=== PATIENT | female | born 1990 | race Caucasian/White ===

== ENCOUNTER 2023-06-04 02:18 | Emergency (ER) | payer OTHER, SELFPAY ==
[2023-06-04 02:20] VITALS: BP 156/91
[2023-06-04 02:40] VITALS: BP 111/78
[2023-06-04 03:16] LABS: % Basophils 0.6 % (0-2); % Eosinophils 1.7 % (0-6); % Immature Granulocytes 0.5 % (0-0.5); % Lymphocytes 38.6 % (20.5-51.1); % Monocytes 7.5 % (1.7-9.3); % Neutrophils 51.1 % (42.2-75.2); Absolute Basophils 0.1 10^3/uL (0-0.2); Absolute Eosinophils 0.2 10^3/uL (0-0.7); Absolute Lymphocytes 3.4 10^3/uL (1.2-3.4); Absolute Monocytes 0.7 10^3/uL (0.1-0.6); Absolute Neutrophils 4.5 10^3/uL (1.4-6.5); Hematocrit 35.6 % (37.0-47.0); Hemoglobin 12.9 g/dL (12.0-16.0); Mean Corp Hgb Conc. 36.2 g/dL (33.0-37.0); Mean Corpuscular Hgb 30.9 pg (27.0-31.0); Mean Corpuscular Volume 85.2 fL (81.0-99.0); Mean Platelet Volume 8.6 fL (7.4-10.4); Nucleated Red Blood Cells % 0 %; Platelet Count 349 10^3/uL (130-400); Red Blood Cell Count 4.18 10^6/uL (4.20-5.40); Red Cell Dist. Width 13.4 % (11.5-14.5); White Blood Cell Count 8.8 10^3/uL (4.8-10.8)
--- NOTE | 2023-06-04 03:27 | ED.GENMED ---
History of Present Illness
General
Chief Complaint: Heart Rate Problem
Source: patient
Exam Limitations: none
Time Seen by Provider: 06/04/23 03:17
Travel History
Have you had any contact with someone who has COVID-19?: No
Do you have any symptoms of coronavirus? Fever > 100 degrees, chills, cough, shortness of breath, sore throat, loss of taste or smell, muscle aches, or headache?: No
History of Present Illness
History of Present Illness:
See MDM
Past History
Past History
ED Past Medical History: Arrthythmia
ED Past Surgical History: None
Social History
Tobacco: Non-smoker
Alcohol: None
Phy Exam
Physical Exam
Physical Exam:
See MDM
Course
Orders/Labs/Results
Orders:
Orders
06/04/23 02:25
Electrocardiogram (*1) Urgent
Reason for Study: Atrial Fibrillation
06/04/23 02:26
EKG- Treatment ONCE
Test Result ONCE
06/04/23 03:08
CMP [Comprehensive Metabolic Panel] Urgent
Complete Blood Count/With Diff Urgent
HCG, Serum Qualitative Screen Urgent
06/04/23 03:09
TSH Reflex To Free T4 Urgent
06/04/23 03:11
Troponin I Urgent
Abnormal Lab Results
06/04/23
03:08
RBC 4.18 L 10^6/uL
(4.20-5.40)
Hct 35.6 L %
(37.0-47.0)
Absolute Monos (auto) 0.7 H 10^3/uL
(0.1-0.6)
Creatinine 0.5 L mg/dL
(0.6-1.0)
Glucose 128 H mg/dl
(70-99)
ALT 39 H U/L
(0-35)
06/04/23 03:08
06/04/23 03:08
Vital Signs
Initial and Last Documented VS:
Initial Vital Signs
Temp Pulse Resp BP Pulse Ox
99.0 F 81 20 156/91 100
06/04/23 02:20 06/04/23 02:20 06/04/23 02:20 06/04/23 02:20 06/04/23 02:20
Last Documented Vital Signs
Temp Pulse Resp BP Pulse Ox
99.0 F 71 18 111/78 98
06/04/23 02:20 06/04/23 03:15 06/04/23 03:15 06/04/23 02:40 06/04/23 03:15
MDM/Problems Addressed
Differential Diagnosis Includes:
HPI and MDM Narrative:
33-year-old female presenting with A-fib episode. She was recently diagnosed a few months ago. Patient was in bed and she was about to place her CPAP machine on. She rolled over bed and felt rapid heartbeat. Her Apple Watch confirmed A-fib.
Patient is compliant with propranolol. She is not on blood thinners. She is currently being followed by cardiology. On arrival, all symptoms resolved
Physical exam
General: Well appearing and non-toxic
HEENT: protecting airway
Neck: appears supple
CV: No evidence of cyanosis. Regular rate and rhythm
Resp: No accessory muscle use. Lungs clear
Abd: Non-distended
Extremities: No deformities. No leg edema
Neuro: alert
Psych: Normal affect
Skin: Intact
Problems Addressed including Acute and Chronic Conditions affecting care:
1. A-fib
Acuity: acute
Prognosis: stable
Details: Currently resolved. Patient in sinus rhythm. Will obtain basic blood work
Updates
Labs without clinical significance. Patient remains well-appearing nontoxic. Discussed continued follow-up with cardiology
Differential Diagnosis (but not limited to): A-fib, palpitations, SVT
Testing considered: Chest x-ray but symptoms resolved
Drug therapy (if applicable): OTC meds, please see d/c instruction regarding Rx drugs
Amount and/or Complexity of Data Reviewed
Clinical info obtained from: Patient
External data reviewed: N/A
Labs I independently reviewed (but not limited to): Troponin and thyroid normal
Radiology: N/A
Pulse Ox: not hypoxic
EKG independently reviewed: Sinus rhythm, normal axis, no STEMI
Sound Effects Manager: Sinus rhythm
Critical Care: N/A
Risk of Complication:
Social Determinants of health: Good social support
Discussed with other providers: N/A
Escalation of Care includes Admit/Obs: After being observed in the Emergency Department, pt stable for discharge.
Occasional wrong word or 'sound a like' substitutions may have occurred due to the inherent limitations of voice recognition software. Read the chart carefully and recognize, using context, where substitutions have occurred.
*Critical Care Note
Total Time (30-74mins, 75-104mins- exclusive of procedures): Not Applicable
ED Attending Note
-
Portions of this chart may have been created with voice recognition software.� Occasional wrong word or��sound alike� substitutions may have occurred due to the inherent limitations of voice recognition software.
Discharge Plan
Departure
Patient Disposition: Home (Routine Discharge)
Date of Disposition: 06/04/23
Time of Disposition: 04:23
Patient with high blood pressure during this ER visit?: No
Discharge Problem:
A-fib
Instructions: Atrial Fibrillation (DC)
Prescriptions:
No Action
propranolol 40 mg Tablet
40 mg PO BID
Referrals:
Charlene Abreu DO [Family Provider] -
Activity Restrictions/Additional Instructions:
Please return for any worsening symptoms.
You may return at any time if you have further concerns.
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
Thank you for choosing [facility].
Interventions
Interventions:
*Risk Screen - Suicide Last Done: 06/04/23 02:20
*General Assessment Last Done: 06/04/23 02:20
*Neglect/Abuse Screening Last Done: 06/04/23 02:20
ED- Fall Risk Assessment Last Done: 06/04/23 02:20
*ED COVID-19 Vaccine History Last Done: 06/04/23 02:20
ED- Cardiac Assessment Last Done: 06/04/23 03:17
ED- Pulmonary Assessment Last Done: 06/04/23 03:17
[2023-06-04 03:33] LABS: HCG, Serum Qualitative Screen Negative
[2023-06-04 03:41] LABS: ALT (SGPT) 39 U/L (0-35); AST (SGOT) 28 U/L (14-36); Albumin 4.5 g/dl (3.5-5.0); Alkaline Phosphatase 81 U/L (38-126); Blood Urea Nitrogen 9 mg/dl (7-17); Calcium 9.4 mg/dl (8.4-10.2); Carbon Dioxide 25 mmol/L (22-30); Chloride 106 mmol/L (98-107); Glucose 128 mg/dl (70-99); Potassium 3.8 mmol/L (3.5-5.1); Sodium 139 mmol/L (135-145); Total Bilirubin 0.5 mg/dl (0.2-1.3); Total Protein 7.7 g/dl (6.3-8.2); eGFR > 60.00
[2023-06-04 03:43] LABS: Troponin I < 0.012 ng/ml
[2023-06-04 04:04] LABS: TSH Reflex To Free T4 3.32 uIU/ml (0.47-4.68)
[2023-06-04 04:06] VITALS: BP 106/83
== END 2023-06-04 04:35 | disposition home or self-care (01) ==
LOC: EMR 02:18
PROVIDERS: EMERGENCY PHYSICIAN Student in an Organized Health Care Education/Training Program; FAMILY PHYSICIAN Family Medicine
DX: I48.91 Unspecified atrial fibrillation (principal)
CPT/HCPCS: 99283; 80053; 84443; 84484; 84703; 85025; 93005

== ENCOUNTER 2023-07-01 05:52 | Day surgery (SDC) | payer OTHER, SELFPAY ==
[2023-06-22 08:08] VITALS: BMI 45.5
[2023-06-22 08:39] LABS: % Basophils 0.7 % (0-2); % Eosinophils 1.4 % (0-6); % Immature Granulocytes 0.6 % (0-0.5); % Lymphocytes 37.3 % (20.5-51.1); % Monocytes 7.2 % (1.7-9.3); % Neutrophils 52.8 % (42.2-75.2); Absolute Basophils 0.1 10^3/uL (0-0.2); Absolute Eosinophils 0.1 10^3/uL (0-0.7); Absolute Immature Granulocytes 0.1 10^3/uL (0-0.05); Absolute Lymphocytes 3.3 10^3/uL (1.2-3.4); Absolute Monocytes 0.6 10^3/uL (0.1-0.6); Absolute Neutrophils 4.6 10^3/uL (1.4-6.5); Hematocrit 37.8 % (37.0-47.0); Hemoglobin 13.2 g/dL (12.0-16.0); Mean Corp Hgb Conc. 34.9 g/dL (33.0-37.0); Mean Corpuscular Hgb 30.3 pg (27.0-31.0); Mean Corpuscular Volume 86.7 fL (81.0-99.0); Mean Platelet Volume 8.9 fL (7.4-10.4); Nucleated Red Blood Cells % 0 %; Platelet Count 382 10^3/uL (130-400); Red Blood Cell Count 4.36 10^6/uL (4.20-5.40); Red Cell Dist. Width 13.2 % (11.5-14.5); White Blood Cell Count 8.8 10^3/uL (4.8-10.8)
[2023-06-22 09:06] LABS: ALT (SGPT) 32 U/L (0-35); AST (SGOT) 21 U/L (14-36); Albumin 4.4 g/dl (3.5-5.0); Alkaline Phosphatase 74 U/L (38-126); Blood Urea Nitrogen 10 mg/dl (7-17); Calcium 9.5 mg/dl (8.4-10.2); Carbon Dioxide 25 mmol/L (22-30); Chloride 103 mmol/L (98-107); Estimated Creatinine Clearance > 125 ml/min; Glucose 102 mg/dl (70-99); Potassium 4.3 mmol/L (3.5-5.1); Sodium 137 mmol/L (135-145); Total Bilirubin 0.5 mg/dl (0.2-1.3); Total Protein 7.5 g/dl (6.3-8.2); eGFR > 60.00
[2023-07-01] VITALS (13 sets, daily range): BP systolic 91–118; BP diastolic 53–86; BMI 45.0
[2023-07-01 08:08] LABS: HCG, Urine Qualitative Screen Negative
[2023-07-01 09:37] LABS: ACT-LR - POC 197 Seconds (116-155)
[2023-07-01 09:44] LABS: ACT-LR - POC 313 Seconds (116-155)
[2023-07-01 09:45] LABS: ACT-LR - POC 348 Seconds (116-155)
[2023-07-01 10:06] LABS: ACT-LR - POC 265 Seconds (116-155)
[2023-07-01 10:28] LABS: ACT-LR - POC 279 Seconds (116-155)
[2023-07-01 10:32] LABS: ACT-LR - POC 232 Seconds (116-155)
--- NOTE | 2023-07-01 11:12 | ITS.CL.ABL ---
Propellant Charge Loader - Ablation
Ablation
Procedure Report:
AFIB ablation:
Ms. Atkins is a very pleasant 33 yr old woman with medical history significant for symptomatic paroxysmal atrial fibrillation, failed Flecainide / Propranolol and is here in the EP lab for atrial fibrillation ablation
Date of Procedure:
07/01/23
Indications:
Symptomatic atrial fibrillation
Pre-Operative Diagnosis:
Paroxysmal Atrial fibrillation
Post-Operative Diagnosis:
Paroxysmal Atrial fibrillation
Procedure Performed:
Atrial fibrillation ablation with wide area circumferential ablation (WACA) approach for pulmonary vein isolation
Performing Physician:
Geoff Berman MD
Assistants:
EP staff
Anesthesia:
See anesthesia records
Detailed Description of the Procedure:
Written informed consent was obtained from the patient after a full explanation of the risks and benefits of the procedure including the risks of sedation and anesthesia.
The patient was brought to the electrophysiology laboratory in stable condition in fasting state. Continuous electrocardiographic and hemodynamic monitoring was initiated.
The initial rhythm was sinus.
The procedure site was meticulously prepared with surgical scrub and allowed to dry with no pooling. Sterile draping was applied to cover the procedure site. The image intensifier was draped with sterile bag and positioned over the patient. After
infusion of local anesthetic, vascular access was obtained under ultrasound guidance and sheaths were placed over guide wire as detailed below.
Sheath and Catheter Placement:
In the right femoral vein, an 8-[place] sheath was placed for use during the ablation procedure. A second 9-Fr sheath was placed for use during intracardiac echo procedure.
The sheaths were upgraded as needed during the case. Intracardiac catheters were positioned using direct fluoroscopic guidance.� ICE catheter was placed in RA. The following catheters / sheaths were placed
Sheaths:
��������������� Agilis sheath in right femoral vein upgraded from 8Fr in right femoral vein
��������������� 9Fr in right femoral vein
��������������� 7fr in right femoral vein
Catheters:
������������� Biosense Arredondo Thermocool STSF bidirectional (D/F) - at locations of HRA, RV, LA and LV.
������������� Pentaray catheter � at locations of RA and LA
������������� ICE catheter - at locations of RA, SVC, and RV.
������������� Decapolar Bard catheter � at locations of RA and CS
Intracardiac ECHO:
An 8-[place] AcuNav intracardiac ECHO (ICE) probe was advanced through the 9-[place] sheath in the femoral vein into the right atrium under fluoroscopic and ICE ultrasound image guidance and a baseline ECHO study was performed. The left atrial size
was normal. There was trace tricuspid regurgitation. The aortic valve was normal. There was normal left ventricular size and function. There was no pericardial effusion. The ADRIENNE has normal velocities noted on Doppler. All the four veins were
identified and good flow noted.
During the procedure, ICE was used for monitoring of complications, guidance of trans-septal puncture, monitor the catheter position and tracking ablation lesions. No change in the pericardial space noted throughout the procedure.
Electrophysiology study:
First the RA was mapped and HIS cloud identified. The penta ray was placed in the RA, The CS was in the CS and the ablatin catheter was placed in the RV and a full EP study was done.
AH was 54 msec
HV was 42 msec.
Sinus Node Function:
Burst pacing was performed from the right atrium at varying cycle lengths to measure the sinus node recovery time (SNRT) and corrected sinus node recovery time (cSNRT). The sinus node functions are within acceptable normal range.
Atrioventricular Mala Function:
Atrial stimulation with incremental pacing intervals was performed from the high right atrium (HRA) and right ventricular apex (RVa) and antegrade and retrograde atrioventricular (AV) block cycle lengths were determined. The antegrade AV Wenckebach
was noted at 330 msec.
Programmed atrial stimulation was performed with drive train of 600 msec followed by a single atrial extra-stimulus and the AV mala and the atrial ERPs were determined. The AV mala ERP was 600/240msec and the atrial ERP was <240msec.
There was normal decremental conduction noted through the AV node. The programmed stimuli showed no evidence of dual pathways or echo beats.
Ventricular stimulation showed concentric, midline and decremental retrograde conduction through the AV node and retrograde AV mala ERP was 800/580 msec. The [address] caused retrograde Wenckebach. �
The AV mala functions are deemed within normal range and no sign of dual pathway noted.
Ventricular Function:
The ventricular electrical functions are within acceptable range.
Para-Hisian pacing:
The proximal CS was noted in the RA and the conduction from the RVa showed possible VA pathway and the Para-Hisian pacing was attempted. The high voltage captured the His with narrow QRS and VA time was 92 msec. The low voltage captured the RV with
wide QRS and the VA time was 186 msec. This is a mala response and accessory pathway was ruled out.�
Arrhythmia Induction:
Programmed stimulation and burst pacing done that did not induce any sustained arrhythmia.
No sustained arrhythmia was inducible.
Then the attention was given to AF ablation.
Trans-septal Puncture:
Heparin was initiated and infused to maintain appropriate ACT.
A J-tipped guidewire was advanced through the 8-[place] sheath in the right femoral vein into the superior vena cava under fluoroscopic and ICE guidance. The 8-[place] sheath was exchanged for an Agilis sheath which was advanced into the superior vena
cava. A BRK needle was advanced until the tip was slightly behind the tip of the dilator inside the Agilis. The apparatus was withdrawn until it was in contact with the fossa ovalis. The position was adjusted based on fluoroscopy and ultrasound
images from ICE. Under fluoroscopic, hemodynamic and ICE ultrasound guidance, left atrium was cannulated by advancing the needle. Once atrial septum was cannulated, the needle was pulled back and a BMW guide wire was advanced through the needle into
the left atrium. The guide wire was advanced into the left superior pulmonary vein. Both the sheath and the dilator was advanced into the left atrium. The dilator with the needle was withdrawn. Blood was aspirated from the Agilis sheath and arterial
blood confirmed. The sheath was flushed. Saline injection noted into the left atrium on ICE. The pressure waveform was checked ad LA pressure measured. The penta-ray catheter was advanced in the Agilis sheath into the left pulmonary vein.
The 3-D mapping was done and then the penta-ray was switched to ablation catheter and back to penta-ray as needed.
3D Electroanatomic Mapping
Using the Pentaray catheter advanced through Agilis sheath into the left atrium, an electroanatomic map (EAM) of the left atrium was created using [employer] Carto mapping system. The map was used for localization of catheter position and
tacking of ablation lesions. The EAM of the left atrium showed 4 pulmonary veins with all four electrically connected to the body the LA. It showed no significant scar present. The LA was normal in size.
The four pulmonary veins were very active and significant ectopy was noted.
Following the EAM, preparations were made for ablation.
Phrenic nerve stimulation attempt:
The right sided pulmonary veins were identified and the anterior antrum and the deep anterior locations of the PVs were check with high output stimulation that showed no phrenic nerve capture in any of the potential ablation areas.
No phrenic nerve capture was noted and the safe areas were marked and a design line was created through the areas of tested antral myocardium for ablation lesions.
Ablation:
Pulmonary vein Isolation:
Radiofrequency ablation was performed using an open irrigation, force-sensing 3.5mm radiofrequency ablation catheter (ThermocoPVPower STSF) by completing the circumferential lesions around the left and right pulmonary veins achieving pulmonary vein
isolation.
All the ablation lesions were guided by the [employer] SURPOINT module with the posterior lesions were limited to 45 herring for SURPOINT lesion index goal of 400 and anterior wall lesions were limited to SURPOINT index goal of 450.
The esophagus was noted to be on the right side of the LA near the PV antra based on the locations of the esophageal temperature probe. Ablation was stopped for any temperature increase of 0.1 degree C. Max esophageal temperature was 37.4C.
Confirmation of the PVI and bidirectional block:
Following achievement of entrance block at the pulmonary veins, pacing from the pentaray catheter in ADRIENNE and the pentaray in each of the four veins at 10 milliamps for 2 milliseconds showed entrance and exit block. All PVI were rechecked at the end
of the case and remained isolated with dissociated and local capture with pacing. Entrance and exit block were demonstrated in all veins.
The LA was mapped with Carto EAM in sinus rhythm confirming the line of block at the ablation lesions lines.
EP study:
Sinus Node Function: The sinus node functions are within acceptable normal range.
The AV mala functions are deemed within normal range.
Arrhythmia Induction:
No sustained arrhythmia was induced at the end of the study.�
Procedure End
ICE study was done again that showed no epicardial accumulation. No complications noted.
Following the completion of the EP study, catheters were removed. Protamine 40 mg was given at the end of the procedure and ACT was checked repeatedly. The sheaths were removed and hemostasis achieved with VASCADE and manual compression after
acceptable ACT is achieved.
Left atrial Pressure:
Pre-Procedure: Mean LA pressure was 18mmHg
Post-Procedure: Mean LA pressure was 18mmHg
Post-Procedure: Mean RA pressure was 15mmHg
Estimated Blood loss:
<10 cc
Specimens Removed:
None.
Implants / Devices:
None
Urine output:
None
Packs / Drains/ Tubes:
None
Instrument / Sponge Count Correct:
Yes
Complications of the Procedure:
None
Condition of Patient at Time of Transfer:
Hemodynamically stable with no neurological or vascular compromise.
Summary:
Successful atrial fibrillation ablation with circumferential bidirectional line of block at pulmonary vein antra (Pulmonary vein isolation)
[2023-07-01] MEDS: TYLENOL 650 MG PO (13:08)
--- NOTE | 2023-07-01 14:34 | W.PN.UPDATE ---
Update Note
Progress Note Update
33 y/o F with medical history significant for symptomatic paroxysmal atrial fibrillation, failed Flecainide / Propranolol.
She had PVI today.
She feels well following her procedure: no CP or SOB. Right groin C/D/I, soft, no hematoma.
She will resume home meds. Activity restrictions reviewed.
Follow up with cardiology in 2 weeks.
She is for discharge to home this afternoon if all remains stable.
--- NOTE | 2023-07-04 11:07 | PTCARENOTE ---
Call placed to pt for followup from [facility] on 07/01/2023. Pt states she did return to the ED on 07/03/2023 due to a migraine with an aura which is not normal for pt. Pt states she was checked out and everything was ok. Pt was discharged. Pt also states
she is having some shortness of breath on exertion since the procedure. Pt states she did not have any shortness of breath prior to the procedure. Marialuisa MOREIRA made aware and stated to instruct pt to call bridge builder and inform the doctor of her VILLALOBOS.
Pt instructed to call bridge builder and report her symptoms. Pt verbalized understanding of instructions given. Questions encouraged and answered.
== END 2023-07-01 14:35 | disposition home or self-care (01) ==
LOC: CATH 05:52
PROVIDERS: ATTENDING PHYSICIAN Internal Medicine Cardiovascular Disease; FAMILY PHYSICIAN Family Medicine
DX: I48.0 Paroxysmal atrial fibrillation (principal); R06.00 Dyspnea, unspecified; F41.9 Anxiety disorder, unspecified; F41.0 Panic disorder [episodic paroxysmal anxiety]; F32.A Depression, unspecified
CPT/HCPCS: C1769; C1894; C1730; C1732; C1766; C1892; C1759; 36415; 76937; 80053; 81025; 85025; 85347; 86850; 86900; 86901; 93005; 93656; C1760

== ENCOUNTER 2023-07-03 11:38 | Emergency (ER) | payer OTHER, SELFPAY ==
[2023-07-03 11:43] VITALS: BP 144/77
[2023-07-03 13:30] VITALS: BMI 46.4
[2023-07-03 13:38] VITALS: BP 111/74
--- NOTE | 2023-07-03 14:43 | ED.GENMED ---
History of Present Illness
<Skye Sanders PA-C - Last Filed: 07/03/23 15:37>
General
Chief Complaint: Headache
Source: patient
Exam Limitations: none
Time Seen by Provider: 07/03/23 12:27
Nursing documentation reviewed up to this point in time: agreed with
Travel History
Have you had any contact with someone who has COVID-19?: No
Do you have any symptoms of coronavirus? Fever > 100 degrees, chills, cough, shortness of breath, sore throat, loss of taste or smell, muscle aches, or headache?: No
History of Present Illness
History of Present Illness:
pt is a 33 y/o F with ho afib s/p ablation [address] martinez
anticoagulated 1 week prior to procedure and currently on eliquis bid
here with headache
gradual onset today with flashing lights in periophery
she has h/o chroni cmigraines since childhood
this headache is not unusual for her in distribuation of pain, enck and foreyhead but the flashing lights is atypical
she sometimes gets floaters in her vision but this is different
she says at maximum intensity this headache was 5/10 and now is 2/10 without treatment and the flashing lights went away spontaneously
she did call dr. martinez because of her procedure adn they wanted her to come be evaluated
pt also had a slight noesbleed left nostril this am briefly when she woke up but resolved right away
Past History
<Skye Sanders PA-C - Last Filed: 07/03/23 15:37>
Past History
ED Past Medical History: Arrthythmia
ED Past Surgical History: None
Social History
Tobacco: Non-smoker
Alcohol: None
Review of Systems
<Skye Sanders PA-C - Last Filed: 07/03/23 15:37>
Review of Systems
Allergies reviewed?: Yes
All Other Systems: Not applicable
Phy Exam
<Skye Sanders PA-C - Last Filed: 07/03/23 15:37>
Physical Exam
Physical Exam:
GENERAL: Alert , in no apparent distress, extremely well appearing
HEAD: NCAT,
EYE: pupils equal and reactive, no nystagmus, no photophobia
NECK: Supple,full rom, nontender
ENT: o/p clr, mmm.
left nostril sligthly swollen, no active bleeding
CARDIAC: Regular rate and rhythm . no edema
LUNGS: Clear breath sounds bilaterally, no acute respiratory distress, no wheezes/rales/rhonchi
ABDOMEN: Soft, without focal tenderness, no r/g, no cvat
NEUROLOGICAL: Alert and orientedx 4, cn intact, no facial asymmetry, 5/5 strength in UE/LE, sensation intact, romberg neg, ambulates without assistance, neg pronator drift, normal visual bonilla
SKIN: Warm and dry, skin intact.
MUSCULOSKELETAL: No edema, well perfused.
PSYCH: Normal and appropriate interaction.
Course
<Skye Sanders PA-C - Last Filed: 07/03/23 15:37>
Orders/Labs/Results
Orders:
Orders
07/03/23 13:06
Electrocardiogram (*1) Urgent
Reason for Study: Atrial Fibrillation
CT Head W/o Iv Contrast Urgent
Comment: recently had cardiac ablation
Reason For Exam: headache with flashing lights
EKG- Treatment ONCE
Vital Signs
Initial and Last Documented VS:
Initial Vital Signs
Temp Pulse Resp BP Pulse Ox
98.6 F 68 16 144/77 100
07/03/23 11:43 07/03/23 11:43 07/03/23 11:43 07/03/23 11:43 07/03/23 11:43
Last Documented Vital Signs
Temp Pulse Resp BP Pulse Ox
98.6 F 66 16 111/74 99
07/03/23 11:43 07/03/23 13:38 07/03/23 13:38 07/03/23 13:38 07/03/23 13:38
<Alma Griggs MD - Last Filed: 07/03/23 15:56>
Orders/Labs/Results
Orders:
Orders
07/03/23 13:06
Electrocardiogram (*1) Urgent
Reason for Study: Atrial Fibrillation
CT Head W/o Iv Contrast Urgent
Comment: recently had cardiac ablation
Reason For Exam: headache with flashing lights
EKG- Treatment ONCE
Vital Signs
Initial and Last Documented VS:
Initial Vital Signs
Temp Pulse Resp BP Pulse Ox
98.6 F 68 16 144/77 100
07/03/23 11:43 07/03/23 11:43 07/03/23 11:43 07/03/23 11:43 07/03/23 11:43
Last Documented Vital Signs
Temp Pulse Resp BP Pulse Ox
98.6 F 66 16 111/74 99
07/03/23 11:43 07/03/23 13:38 07/03/23 13:38 07/03/23 13:38 07/03/23 13:38
<Skye Sanders PA-C - Last Filed: 07/03/23 15:37>
MDM/Problems Addressed
Differential Diagnosis Includes:
migraine with aura, tension headache, less likely stroke
MDM/Problems Addressed:
33 y/o F s/p cardiac ablation 2 days ago for afib, on anticoagulation
here with headache this morning
no red flags, gradual onset and similar in location and intensity to previus migraines but she did have some flashing lights that were different than baseline; they disspiated quickly without any treatment and her headache ius nearly gone but she
called EP and they told her to come in for eval since she had a slight difference in her headache with the vision flashing lights
pt says she has chronic migraines otherwise and wouldn't have come in if not for the recent procedure
well appearing
normotensive
ekg NSR
ct head neg
neuro itnact
07/03/2023 1537 PM
no headache or flashing lights
seen by ed attending
d/c home.
<Skye Sanders PA-C - Last Filed: 07/03/23 15:37>
*Critical Care Note
Total Time (30-74mins, 75-104mins- exclusive of procedures): Not Applicable
ED Attending Note
<Skye Sanders PA-C - Last Filed: 07/03/23 15:37>
-
Portions of this chart may have been created with voice recognition software.� Occasional wrong word or��sound alike� substitutions may have occurred due to the inherent limitations of voice recognition software.
<Alma Griggs MD - Last Filed: 07/03/23 15:56>
ED Attending Note
Patient seen and examined by attending physician: Yes
I performed the substantive portion of visit, reviewed & personally made and approve the management plan that is documented in note by myself or LESLIE.: Yes
ED Attending Note:
pT WITH H/A AND BRIGHT SPOTS OILSEED MEAT PRESSER, NOW RESOLVED. NO N/T/FOCAL WEAKNESS/DIPLPLIA/N/V. S/P RECENT ABLATION. ON EXAM, PT AWAKE ALERT NEURO INTACT IN NAD. HIGHLY DOUBT TIA OR OTHER ACUTE NEURO PROCESS BASED ON W/U AND EVAL HERE.
Discharge Plan
Departure
Patient Disposition: Home (Routine Discharge)
Date of Disposition: 07/03/23
Time of Disposition: 15:33
Patient with high blood pressure during this ER visit?: No
Condition: Fair
Covid-19: Not Applicable
Discharge Problem:
Headache
Instructions: Migraines (DC)
Prescriptions:
No Action
propranolol 40 mg Tablet
40 mg PO BID
desonide 0.05 % Ointment
1 applic TOPICAL PRN PRN (Reason: eczema)
triamcinolone acetonide 0.1 % Ointment
1 applic TOPICAL PRN PRN (Reason: eczema)
flecainide 100 mg Tablet
100 mg PO BID
clobetasol 0.05 % Ointment
1 applic TOPICAL PRN PRN (Reason: eczema)
metaxalone 800 mg Tablet
800 mg PO PRN PRN (Reason: muscle spasm)
Aimovig Autoinjector 140 mg/mL Auto-Injector
140 mg SC QMONTH
sertraline 150 mg Capsule
150 mg PO DAILY
[id number]-[id number] 50-325-40 mg Capsule
1 cap PO Q6H PRN (Reason: migraine)
Eliquis 5 mg tablet
5 mg PO BID Qty: 60 0RF
Referrals:
Charlene Abreu, [Family Provider] - Follow up in 2-3 days
Activity Restrictions/Additional Instructions:
Your CAT scan was normal today. And your EKG was normal sinus rhythm. You can take Tylenol 2 extra strength every 6 hours which is 3 times a day as needed. Drink fluids. Call your neurologist for further recommendations for migraine treatment if
you need to since you have had your ablation I am not sure what medications to avoid but you should avoid NSAIDs while you are on Eliquis.
Return to the ER for sudden worsening of severe headache, vision loss or vision changes, vomiting, neck pain, passing out, fever or chills or any concern
Interventions
Interventions:
*Risk Screen - Suicide Last Done: 07/03/23 11:43
*General Assessment Last Done: 07/03/23 11:43
*Neglect/Abuse Screening Last Done: 07/03/23 11:43
ED- Fall Risk Assessment Last Done: 07/03/23 13:34
*ED COVID-19 Vaccine History Last Done: 07/03/23 13:34
ED- Neurological Assessment Last Done: 07/03/23 13:34
--- NOTE | 2023-07-03 15:53 | EDRN ---
Dr. Griggs was in to see pt at this time.
--- NOTE | 2023-07-03 15:55 | EDRN ---
Pt states her symptoms have decreased and she is feeling much better at this time.
[2023-07-03 15:58] VITALS: BP 121/69
== END 2023-07-03 16:00 | disposition home or self-care (01) ==
LOC: EMR 11:38
PROVIDERS: EMERGENCY PHYSICIAN Emergency Medicine; FAMILY PHYSICIAN Family Medicine
DX: R51.9 Headache, unspecified (principal); H43.399 Other vitreous opacities, unspecified eye; R04.0 Epistaxis; I48.91 Unspecified atrial fibrillation; G47.30 Sleep apnea, unspecified; Z98.890 Other specified postprocedural states; Z90.49 Acquired absence of other specified parts of digestive tract; Z79.01 Long term (current) use of anticoagulants; Z88.8 Allergy status to other drugs, medicaments and biological substances
CPT/HCPCS: 99284; 70450; 93005